=== PATIENT | male | born 1980 | race Hispanic/Latino ===

== ENCOUNTER 2017-03-21 14:15 | Emergency (ER) | payer SELFPAY ==
[2017-03-21] MEDS ORDERED: Ibuprofen 800 MG TAB ONE (14:44)
--- NOTE | 2017-03-21 15:15 | RAD ---
LEFT KNEE: Four views. HISTORY: Left knee pain. FINDINGS: Joint spaces appear normal. No fracture. Very mild degenerative change is seen with minimal spurrin g from the patella. No evidence of joint effusion. IMPRESSION: No acute abnormality identified. POS: [facility]
[2017-03-21] MEDS ORDERED: Acetaminophen/Codeine 30-300mg Tablet ONE (16:00)
== END 2017-03-21 15:33 | disposition home or self-care (01) ==
LOC: ERS 14:15
DX: M25.562 Pain in left knee (principal); E78.5 Hyperlipidemia, unspecified; I10 Essential (primary) hypertension; F17.210 Nicotine dependence, cigarettes, uncomplicated

== ENCOUNTER 2017-04-22 05:36 | Emergency (ER) | payer SELFPAY ==
[2017-04-22 06:10] LABS: #Eosinphils 0.3 thou/uL (0.0-0.7); #Lymphocytes 2.8 thou/uL (1.20-3.40); #Monocytes 1.2 thou/uL (0.11-0.59); #Neutrophils 7.2 thou/uL (1.40-6.50); %Basophils 0.2 % (0.0-1.0); %Eosinophils 2.5 % (0.0-10.0); %Lymphocytes 24.4 % (21.0-51.0); %Monocytes 10.4 % (0.0-10.0); %Neutrophils 62.6 % (42.0-75.0); Hemoglobin 15.6 g/dL (14.0-18.0); Mean Corpuscular HGB CONC 33.5 g/dL (32.0-36.0); Mean Corpuscular Hemoglobin 30.3 pg (27.0-31.0); Mean Corpuscular Volume 90.7 fl (80.0-94.0); Mean Platelet Volume 6.6 fL (7.4-10.4); Platelet Count 280 thou/uL (130-400); RBC Distribution Width 12.1 % (11.5-14.5); Red Blood Cell (RBC) Count 5.13 mill/uL (4.70-6.10); White Blood Cell (WBC) Count 11.6 thou/uL (4.8-10.8)
[2017-04-22 06:40] LABS: ALT (SGPT) 22 U/L (8-55); AST (SGOT) 17 U/L (5-34); Alkaline Phosphatase 50 U/L (40-150); Anion Gap 11 mmol/L (10-20); BUN (Urea Nitrogen) 14 mg/dL (8.9-20.6); Bilirubin, Total 0.3 mg/dL (0.2-1.2); Calc. Creatinine Clearance 0 mL/min (70-130); Calcium 9.1 mg/dL (7.8-10.44); Carbon Dioxide 29 mmol/L (22-29); Chloride 103 mmol/L (98-107); Estimated GFR-MDRD Greater than 90; Globulin 2.9 g/dL (2.4-3.5); Glucose 133 mg/dL (70-105); Lipase 65 U/L (8-78); Potassium 4.5 mmol/L (3.5-5.1); Protein, Total 6.9 g/dL (6.0-8.3); Sodium 138 mmol/L (136-145)
[2017-04-22 08:14] LABS: Bilirubin Negative (Negative); Blood, Urine Trace (Negative); Clarity CLEAR (Clear); Glucose, Urine (Dipstick) Negative (Negative); Leukocyte Negative (Negative); Nitrite Negative (Negative); Protein, Urine (Dipstick) Negative (Neg-Trace); Urobilinogen 0.2 mg/dL (0.2-1.0); pH, Urine 5.5 (5.0-9.0)
[2017-04-22 08:20] LABS: Bacteria/HPF None Seen HPF (None Seen); Hyaline Casts/LPF 0-3 HYALINE CAST LPF (0-3 Hyaline); RBC/HPF 0-3 HPF (0-3); Squamous Epithelial None Seen HPF (0-3); WBC/HPF None Seen HPF (0-3)
--- NOTE | 2017-04-22 09:32 | RAD ---
ABDOMEN 1 VIEW: Date: 04/22/17 HISTORY: Emergency exam. COMPARISON: [facility] protocol CT from 2016. FINDINGS: There is a curvilinear calcification directing over the left renal shadow. Right renal shadow is with out calcification. Between the two views, there is differential orientation of this area. There are s ome surgical clips along the left ureter. No dilated or air-filled loops of large or small bowel. IMPRESSION: 1. No dilated or air-filled loops of large of small bowel. No evidence of bowel obstruction. 2. Multiple surgical clips projecting over the left kidney and the left ureter. POS: [facility]
== END 2017-04-22 08:51 | disposition home or self-care (01) ==
LOC: ERS 05:36
DX: R10.13 Epigastric pain (principal); E78.5 Hyperlipidemia, unspecified; I10 Essential (primary) hypertension; F17.210 Nicotine dependence, cigarettes, uncomplicated
CPT/HCPCS: 36415; 74018; 80053; 81003; 81015; 83690; 85025; 93005

== ENCOUNTER 2017-06-15 09:12 | Emergency (ER) | payer SELFPAY ==
[2017-06-15 10:08] LABS: #Eosinphils 0.2 thou/uL (0.0-0.7); #Lymphocytes 1.6 thou/uL (1.20-3.40); #Monocytes 0.9 thou/uL (0.11-0.59); #Neutrophils 9.4 thou/uL (1.40-6.50); %Basophils 0.3 % (0.0-1.0); %Eosinophils 1.9 % (0.0-10.0); %Lymphocytes 13.3 % (21.0-51.0); %Monocytes 7.4 % (0.0-10.0); %Neutrophils 77.2 % (42.0-75.0); Hemoglobin 16.9 g/dL (14.0-18.0); Mean Corpuscular Hemoglobin 30.3 pg (27.0-31.0); Mean Corpuscular Volume 89.1 fl (80.0-94.0); Mean Platelet Volume 7.2 fL (7.4-10.4); Platelet Count 281 thou/uL (130-400); RBC Distribution Width 12.7 % (11.5-14.5); Red Blood Cell (RBC) Count 5.57 mill/uL (4.70-6.10); White Blood Cell (WBC) Count 12.1 thou/uL (4.8-10.8)
[2017-06-15] MEDS ORDERED: Ondansetron HCl/PF 4 MG/2 ML Vial ONE (10:28)
[2017-06-15] MEDS ORDERED: Ketorolac Tromethamine 30 MG/ML VIAL ONE (10:28)
[2017-06-15 10:35] LABS: ALT (SGPT) 36 U/L (8-55); AST (SGOT) 29 U/L (5-34); Albumin 4.5 g/dL (3.5-5.0); Alkaline Phosphatase 59 U/L (40-150); Anion Gap 12 mmol/L (10-20); BUN (Urea Nitrogen) 15 mg/dL (8.9-20.6); Bilirubin, Total 0.4 mg/dL (0.2-1.2); Calc. Creatinine Clearance 0 mL/min (70-130); Calcium 9.6 mg/dL (7.8-10.44); Carbon Dioxide 24 mmol/L (22-29); Chloride 104 mmol/L (98-107); Estimated GFR-MDRD Greater than 90; Globulin 3.3 g/dL (2.4-3.5); Glucose 144 mg/dL (70-105); Lipase 16 U/L (8-78); Potassium 3.8 mmol/L (3.5-5.1); Protein, Total 7.8 g/dL (6.0-8.3); Sodium 136 mmol/L (136-145)
[2017-06-15 10:47] LABS: Bilirubin Negative (Negative); Blood, Urine Small (Negative); Clarity CLEAR (Clear); Glucose, Urine (Dipstick) Negative (Negative); Leukocyte Negative (Negative); Nitrite Negative (Negative); Protein, Urine (Dipstick) Trace mg/dL (Neg-Trace); Specific Gravity, Urine 1.031 (1.002-1.036); Urobilinogen 0.2 mg/dL (0.2-1.0); pH, Urine 5.5 (5.0-9.0)
[2017-06-15 10:50] LABS: Bacteria/HPF None Seen HPF (None Seen); Hyaline Casts/LPF 0-3 HYALINE CAST LPF (0-3 Hyaline); RBC/HPF 0-3 HPF (0-3); Squamous Epithelial None Seen HPF (0-3); WBC/HPF 0-3 HPF (0-3)
--- NOTE | 2017-06-15 12:01 | CT ---
CT ABDOMEN AND PELVIS WITH ORAL AND IV CONTRAST: Date: 06/15/17 HISTORY: Abdominal pain, nausea and vomiting. Previous history of diverticulitis and colostomy. FINDINGS: Comparison made with exam of 11/09/15. The lung bases are clear. No free air, free fluid, or lymphadenopathy seen in the abdomen or pelvis. No calcified gallstones are seen. There is mild fatty infiltration of the liver. The small bowel loop s are not abnormally dilated. A normal appearing appendix is present. There are postop changes in the sigmoid colon. Colonic diverticulosis is seen without evidence of diverticulitis. No abnormally locu lated fluid collections are noted to suggest abscess formation. No acute osseous abnormalities are id entified. IMPRESSION: 1. Colonic diverticulosis without evidence of diverticulitis. 2. Fatty liver. POS: [facility]
[2017-06-15] MEDS ORDERED: Iopamidol 370 76% 50 ML VIAL FS ONE (15:39)
[2017-06-15] MEDS ORDERED: ISOVUE-370 76%-LOCM 1 ML ONE (15:39)
== END 2017-06-15 12:22 | disposition home or self-care (01) ==
LOC: ERS 09:12
DX: R10.12 Left upper quadrant pain (principal); R10.32 Left lower quadrant pain; E78.5 Hyperlipidemia, unspecified; I10 Essential (primary) hypertension; F17.210 Nicotine dependence, cigarettes, uncomplicated
CPT/HCPCS: 74177; 80053; 81003; 81015; 83690; 85025; 96361; 96374; 96375; J1885; J2405

== ENCOUNTER 2017-09-01 22:54 | Emergency (ER) | payer SELFPAY ==
--- NOTE | 2017-09-01 23:14 | RAD ---
TWO VIEWS OF THE CHEST: 09/01/17 COMPARISON: 06/22/15 HISTORY: Chest pressure for a few days. FINDINGS: Two views of the chest show normal sized cardiomediastinal silhouette. There is no evidence of consol idation, mass, or pleural effusion. The bones are unremarkable. IMPRESSION: No evidence of acute cardiopulmonary disease. POS: [facility]
[2017-09-01 23:37] LABS: #Eosinphils 0.2 thou/uL (0.0-0.7); #Lymphocytes 2.9 thou/uL (1.20-3.40); #Monocytes 0.5 thou/uL (0.11-0.59); #Neutrophils 2.9 thou/uL (1.40-6.50); %Basophils 0.7 % (0.0-1.0); %Eosinophils 3.1 % (0.0-10.0); %Lymphocytes 45.2 % (21.0-51.0); %Monocytes 7.2 % (0.0-10.0); %Neutrophils 43.8 % (42.0-75.0); Hemoglobin 15.6 g/dL (14.0-18.0); Mean Corpuscular HGB CONC 35.8 g/dL (32.0-36.0); Mean Corpuscular Hemoglobin 31.1 pg (27.0-31.0); Mean Platelet Volume 6.8 fL (7.4-10.4); Platelet Count 272 thou/uL (130-400); RBC Distribution Width 12.6 % (11.5-14.5); Red Blood Cell (RBC) Count 5.03 mill/uL (4.70-6.10); White Blood Cell (WBC) Count 6.5 thou/uL (4.8-10.8)
[2017-09-01 23:57] LABS: ALT (SGPT) 34 U/L (8-55); AST (SGOT) 24 U/L (5-34); Albumin 4.2 g/dL (3.5-5.0); Alkaline Phosphatase 55 U/L (40-150); Anion Gap 15 mmol/L (10-20); BUN (Urea Nitrogen) 11 mg/dL (8.9-20.6); Bilirubin, Total 0.4 mg/dL (0.2-1.2); CK (CPK) 147 U/L (30-200); Calc. Creatinine Clearance 0 mL/min (70-130); Carbon Dioxide 22 mmol/L (22-29); Chloride 105 mmol/L (98-107); Estimated GFR-MDRD Greater than 90; Globulin 3.6 g/dL (2.4-3.5); Glucose 168 mg/dL (70-105); Potassium 3.9 mmol/L (3.5-5.1); Protein, Total 7.8 g/dL (6.0-8.3); Sodium 138 mmol/L (136-145)
[2017-09-02 00:01] LABS: CKMB 0.7 ng/mL (0-6.6); Troponin I Less than 0.010 ng/mL (< 0.028)
== END 2017-09-02 02:15 | disposition home or self-care (01) ==
LOC: ERS 22:54
DX: R07.89 Other chest pain (principal); E78.5 Hyperlipidemia, unspecified; F17.210 Nicotine dependence, cigarettes, uncomplicated; I10 Essential (primary) hypertension
CPT/HCPCS: 36415; 71046; 80053; 82550; 82553; 84484; 85025; 93005

== ENCOUNTER 2019-06-04 19:21 | Emergency (ER) | payer OTHER, SELFPAY ==
[2019-06-04] MEDS ORDERED: Adacel (T-DAP) 0.5 ML SYRINGE ONE (19:42)
[2019-06-04] MEDS ORDERED: Bacitracin 1 PK ONE (19:43)
== END 2019-06-04 20:06 | disposition home or self-care (01) ==
LOC: ERS 19:21
DX: S00.31XA Abrasion of nose, initial encounter (principal); E78.5 Hyperlipidemia, unspecified; I10 Essential (primary) hypertension; F17.210 Nicotine dependence, cigarettes, uncomplicated; W20.8XXA Other cause of strike by thrown, projected or falling object, initial encounter; Z23 Encounter for immunization
CPT/HCPCS: 90471; 90715

== ENCOUNTER 2021-10-28 15:59 | Emergency (ER) | payer SELFPAY ==
[2021-10-28] MEDS ORDERED: Ketorolac Tromethamine 30 MG/ML VIAL ONE (18:10)
== END 2021-10-28 18:33 | disposition home or self-care (01) ==
LOC: ERS 15:59
DX: M25.461 Effusion, right knee (principal); E78.5 Hyperlipidemia, unspecified; I10 Essential (primary) hypertension; F17.210 Nicotine dependence, cigarettes, uncomplicated; W19.XXXA Unspecified fall, initial encounter
CPT/HCPCS: 96372; J1885

== ENCOUNTER 2022-11-13 17:07 | Inpatient (IN) | payer BC ==
[~2022-11-13 17:07] MED LIST: Iopamidol-370 76% 500 ML MDV (1 ML CHARGE) ONE
[2022-11-13 19:16] LABS: #Eosinphils 0.1 thou/uL (0.0-0.7); #Monocytes 0.7 thou/uL (0.11-0.59); #Neutrophils 3.3 thou/uL (1.40-6.50); %Basophils 0.3 % (0.0-1.0); %Eosinophils 1.4 % (0.0-10.0); %Lymphocytes 29.4 % (21.0-51.0); %Monocytes 12.1 % (0.0-10.0); %Neutrophils 56.5 % (42.0-75.0); Hematocrit 43.1 % (42.0-52.0); Hemoglobin 15.3 g/dL (14.0-18.0); Mean Corpuscular HGB CONC 35.5 g/dL (32.0-36.0); Mean Corpuscular Hemoglobin 30.6 pg (27.0-31.0); Mean Corpuscular Volume 86.2 fl (78.0-98.0); Mean Platelet Volume 9.5 fL (7.4-10.4); Platelet Count 206 10x3/uL (130-400); White Blood Cell (WBC) Count 5.8 10x3/uL (4.8-10.8)
[2022-11-13 19:50] LABS: ALT (SGPT) 52 U/L (8-55); AST (SGOT) 34 U/L (5-34); Albumin 4.4 g/dL (3.5-5.0); Alkaline Phosphatase 66 U/L (40-110); BUN (Urea Nitrogen) 10 mg/dL (8.9-20.6); Bilirubin, Total 0.5 mg/dL (0.2-1.2); Calc. Creatinine Clearance 0 mL/min (70-130); Calcium 9.4 mg/dL (7.8-10.44); Carbon Dioxide 21 mmol/L (22-29); Chloride 104 mmol/L (98-107); Estimated GFR 110; Globulin 2.8 g/dL (2.4-3.5); Glucose 212 mg/dL (70-105); Potassium 3.9 mmol/L (3.5-5.1); Protein, Total 7.2 g/dL (6.0-8.3); Sodium 135 mmol/L (136-145); Troponin I Less than 0.010 ng/mL (< 0.028)
[2022-11-13 20:06] LABS: Anion Gap 14 mmol/L (10-20)
[2022-11-13 20:43] LABS: Lipase 13 U/L (8-78); Magnesium 1.9 mg/dL (1.6-2.6)
[2022-11-13] MEDS ORDERED: Ondansetron PF 4 MG/2 ML Vial ONE (20:53)
[2022-11-13] MEDS ORDERED: Morphine 4 MG/ML VIAL ONE (20:53)
[2022-11-13] MEDS ORDERED: fentaNYL 50 mcg/mL 1 mL Vial ONE (22:50)
[2022-11-14] MEDS ORDERED: metroNIDAZOLE 500 MG/100 ML BAG ONE (01:31)
[2022-11-14] MEDS ORDERED: Ondansetron ODT 4 MG TAB PO PRN (01:40)
[2022-11-14] MEDS ORDERED: Ondansetron PF 4 MG/2 ML Vial IVP PRN (01:40)
[2022-11-14] MEDS ORDERED: Glucagon 1 MG/ML KIT IM PRN (01:47)
[2022-11-14] MEDS ORDERED: HumaLOG 300 UNITS/3 ML VIAL SC PRN (01:47)
[2022-11-14] MEDS ORDERED: Dextrose 50% Abboject 50 ML SYRINGE SLOW IVP PRN (01:47)
[2022-11-14] MEDS ORDERED: Dextrose 5% in Water 1,000 ML IV PRN (01:47)
[2022-11-14 03:25] VITALS: BMI 38.1
[2022-11-14] MEDS: Morphine 2 MG/ML VIAL SLOW IVP PRN ×3 (03:49→11:41)
[2022-11-14] MEDS: Lactated Ringer's 1,000 ML IV SCH ×3 (03:50→20:06)
[2022-11-14 06:57] LABS: #Eosinphils 0.2 thou/uL (0.0-0.7); #Monocytes 0.8 thou/uL (0.11-0.59); %Basophils 0.2 % (0.0-1.0); %Eosinophils 2.9 % (0.0-10.0); %Lymphocytes 41.1 % (21.0-51.0); %Monocytes 15.3 % (0.0-10.0); %Neutrophils 40.1 % (42.0-75.0); Hematocrit 39.3 % (42.0-52.0); Hemoglobin 13.6 g/dL (14.0-18.0); Mean Corpuscular HGB CONC 34.6 g/dL (32.0-36.0); Mean Corpuscular Volume 86.8 fl (78.0-98.0); Mean Platelet Volume 9.3 fL (7.4-10.4); Platelet Count 178 10x3/uL (130-400); RBC Distribution Width 13.1 % (11.5-14.5); Red Blood Cell (RBC) Count 4.53 mill/uL (4.70-6.10); White Blood Cell (WBC) Count 5.1 10x3/uL (4.8-10.8)
[2022-11-14 07:19] LABS: Anion Gap 11 mmol/L (10-20); BUN (Urea Nitrogen) 8 mg/dL (8.9-20.6); Calc. Creatinine Clearance 187 mL/min (70-130); Calcium 8.8 mg/dL (7.8-10.44); Carbon Dioxide 25 mmol/L (22-29); Chloride 104 mmol/L (98-107); Estimated GFR 114; Glucose 165 mg/dL (70-105); Potassium 3.8 mmol/L (3.5-5.1); Sodium 136 mmol/L (136-145)
[2022-11-14] MEDS: metroNIDAZOLE 500 MG in Premix Bag 1 BAG IVPB SCH ×2 (09:48→18:11)
[2022-11-14] MEDS: Acetaminophen 325 MG TAB PO PRN ×2 (11:41→18:11)
[2022-11-14] MEDS: Morphine 4 MG/ML VIAL SLOW IVP PRN ×2 (15:58→20:17)
[2022-11-14] MEDS: traMADol HCl 50 MG TAB PO PRN (18:10)
[2022-11-15] MEDS: Morphine 4 MG/ML VIAL SLOW IVP PRN ×3 (02:07→14:02)
[2022-11-15] MEDS: metroNIDAZOLE 500 MG in Premix Bag 1 BAG IVPB SCH ×3 (02:08→18:19)
[2022-11-15] MEDS: Lactated Ringer's 1,000 ML IV SCH ×3 (03:17→21:36)
[2022-11-15 07:49] LABS: #Eosinphils 0.2 thou/uL (0.0-0.7); #Monocytes 0.5 thou/uL (0.11-0.59); #Neutrophils 1.4 thou/uL (1.40-6.50); %Basophils 0.5 % (0.0-1.0); %Eosinophils 4.1 % (0.0-10.0); %Lymphocytes 47.7 % (21.0-51.0); %Monocytes 12.9 % (0.0-10.0); %Neutrophils 34.3 % (42.0-75.0); Hematocrit 38.8 % (42.0-52.0); Hemoglobin 13.4 g/dL (14.0-18.0); Mean Corpuscular HGB CONC 34.5 g/dL (32.0-36.0); Mean Corpuscular Hemoglobin 30.2 pg (27.0-31.0); Mean Corpuscular Volume 87.4 fl (78.0-98.0); Mean Platelet Volume 9.4 fL (7.4-10.4); Platelet Count 185 10x3/uL (130-400); Red Blood Cell (RBC) Count 4.44 mill/uL (4.70-6.10); White Blood Cell (WBC) Count 4.1 10x3/uL (4.8-10.8)
[2022-11-15 08:08] LABS: Anion Gap 10 mmol/L (10-20); BUN (Urea Nitrogen) 6 mg/dL (8.9-20.6); Calc. Creatinine Clearance 197 mL/min (70-130); Calcium 8.5 mg/dL (7.8-10.44); Carbon Dioxide 27 mmol/L (22-29); Chloride 100 mmol/L (98-107); Estimated GFR 116; Glucose 153 mg/dL (70-105); Potassium 3.8 mmol/L (3.5-5.1); Sodium 133 mmol/L (136-145)
[2022-11-15] MEDS: Acetaminophen 325 MG TAB PO PRN ×2 (08:09→17:16)
[2022-11-15] MEDS: traMADol HCl 50 MG TAB PO PRN ×2 (08:09→17:16)
[2022-11-15] MEDS: Polyethylene Glycol 3350 17 GM Packet PO SCH (08:10)
[2022-11-15] MEDS: metFORMIN 500 MG TAB PO SCH (08:10)
[2022-11-16] MEDS: Lactated Ringer's 1,000 ML IV SCH ×2 (02:33→14:53)
[2022-11-16] MEDS: metroNIDAZOLE 500 MG in Premix Bag 1 BAG IVPB SCH ×3 (02:34→17:30)
[2022-11-16 06:31] LABS: #Eosinphils 0.2 thou/uL (0.0-0.7); #Monocytes 0.6 thou/uL (0.11-0.59); #Neutrophils 1.9 thou/uL (1.40-6.50); %Basophils 0.4 % (0.0-1.0); %Eosinophils 3.1 % (0.0-10.0); %Lymphocytes 45.5 % (21.0-51.0); %Monocytes 11.3 % (0.0-10.0); %Neutrophils 39.1 % (42.0-75.0); Hematocrit 38.5 % (42.0-52.0); Hemoglobin 13.7 g/dL (14.0-18.0); Mean Corpuscular HGB CONC 35.6 g/dL (32.0-36.0); Mean Corpuscular Hemoglobin 30.4 pg (27.0-31.0); Mean Corpuscular Volume 85.4 fl (78.0-98.0); Mean Platelet Volume 9.1 fL (7.4-10.4); Platelet Count 186 10x3/uL (130-400); RBC Distribution Width 12.9 % (11.5-14.5); Red Blood Cell (RBC) Count 4.51 mill/uL (4.70-6.10); White Blood Cell (WBC) Count 4.9 10x3/uL (4.8-10.8)
[2022-11-16 07:19] LABS: ALT (SGPT) 87 U/L (8-55); AST (SGOT) 68 U/L (5-34); Albumin 3.5 g/dL (3.5-5.0); Alkaline Phosphatase 47 U/L (40-110); Anion Gap 10 mmol/L (10-20); BUN (Urea Nitrogen) 6 mg/dL (8.9-20.6); Bilirubin, Total 0.4 mg/dL (0.2-1.2); Calc. Creatinine Clearance 182 mL/min (70-130); Calcium 8.9 mg/dL (7.8-10.44); Carbon Dioxide 26 mmol/L (22-29); Chloride 103 mmol/L (98-107); Estimated GFR 113; Globulin 2.6 g/dL (2.4-3.5); Glucose 151 mg/dL (70-105); Magnesium 1.7 mg/dL (1.6-2.6); Potassium 3.7 mmol/L (3.5-5.1); Protein, Total 6.1 g/dL (6.0-8.3); Sodium 135 mmol/L (136-145)
[2022-11-16] MEDS: Polyethylene Glycol 3350 17 GM Packet PO SCH (09:18)
[2022-11-16] MEDS: metFORMIN 500 MG TAB PO SCH (09:19)
[2022-11-16] MEDS: Morphine 4 MG/ML VIAL SLOW IVP PRN ×2 (14:54→21:34)
[2022-11-16] MEDS: traMADol HCl 50 MG TAB PO PRN (17:12)
[2022-11-16] MEDS: Acetaminophen 325 MG TAB PO PRN (17:13)
[2022-11-16] MEDS: Docusate 100 MG CAP PO SCH (21:02)
[2022-11-17] MEDS: Lactated Ringer's 1,000 ML IV SCH ×4 (00:22→15:06)
[2022-11-17] MEDS: metroNIDAZOLE 500 MG in Premix Bag 1 BAG IVPB SCH ×3 (01:44→17:34)
[2022-11-17] MEDS: traMADol HCl 50 MG TAB PO PRN (02:36)
[2022-11-17 05:23] LABS: #Eosinphils 0.1 thou/uL (0.0-0.7); #Monocytes 0.6 thou/uL (0.11-0.59); #Neutrophils 1.7 thou/uL (1.40-6.50); %Basophils 0.4 % (0.0-1.0); %Eosinophils 2.7 % (0.0-10.0); %Lymphocytes 52.1 % (21.0-51.0); %Monocytes 11.7 % (0.0-10.0); %Neutrophils 32.5 % (42.0-75.0); Hematocrit 39.1 % (42.0-52.0); Hemoglobin 13.5 g/dL (14.0-18.0); Mean Corpuscular HGB CONC 34.5 g/dL (32.0-36.0); Mean Corpuscular Hemoglobin 29.9 pg (27.0-31.0); Mean Corpuscular Volume 86.5 fl (78.0-98.0); Mean Platelet Volume 9.4 fL (7.4-10.4); Platelet Count 209 10x3/uL (130-400); RBC Distribution Width 13.1 % (11.5-14.5); Red Blood Cell (RBC) Count 4.52 mill/uL (4.70-6.10); White Blood Cell (WBC) Count 5.1 10x3/uL (4.8-10.8)
[2022-11-17] MEDS: HumaLOG 300 UNITS/3 ML VIAL SC PRN (05:37)
[2022-11-17] MEDS: metFORMIN 500 MG TAB PO SCH (08:02)
[2022-11-17] MEDS: Docusate 100 MG CAP PO SCH ×2 (08:02→20:11)
[2022-11-17] MEDS: Polyethylene Glycol 3350 17 GM Packet PO SCH (08:03)
[2022-11-17] MEDS ORDERED: Polyethylene Glycol 3350 17 GM Packet PO PRN (12:57)
[2022-11-17] MEDS ORDERED: Polyethylene Glycol 3350 17 GM Packet PO SCH (13:00)
[2022-11-17] MEDS ORDERED: Electrolyte Replacement Protocol 1 EACH FS SCH (14:00)
[2022-11-17] MEDS ORDERED: Electrolyte Replacement Protocol FS PRN (14:15)
[2022-11-17] MEDS ORDERED: Senokot S 8.6-50 MG TAB PO SCH (21:00)
[2022-11-17] MEDS ORDERED: Docusate 100 MG CAP PO SCH (21:00)
[2022-11-17] MEDS: Senokot S 8.6-50 MG TAB PO SCH (21:37)
[2022-11-18] MEDS: metroNIDAZOLE 500 MG in Premix Bag 1 BAG IVPB SCH ×2 (01:00→09:53)
[2022-11-18] MEDS: Lactated Ringer's 1,000 ML IV SCH (04:00)
[2022-11-18] MEDS: HumaLOG 300 UNITS/3 ML VIAL SC PRN (06:18)
[2022-11-18 08:20] VITALS: BP 139/93; TEMP 98.1
[2022-11-18] MEDS: Senokot S 8.6-50 MG TAB PO SCH (08:29)
[2022-11-18] MEDS: metFORMIN 500 MG TAB PO SCH (08:29)
[2022-11-18] MEDS: Polyethylene Glycol 3350 17 GM Packet PO SCH (08:30)
[2022-11-18] MEDS ORDERED: Methylcellulose 500 MG TAB PO SCH (09:00)
== END 2022-11-18 13:01 | disposition home or self-care (01) | DRG 392 ==
LOC: ERS 17:07 → T4-B 11-14 01:31 → OBSVTOIN 11-14 13:28
PROVIDERS: ADMIT Student in an Organized Health Care Education/Training Program; ATTEND Internal Medicine
DX: K57.32 Diverticulitis of large intestine without perforation or abscess without bleeding (principal); E87.1 Hypo-osmolality and hyponatremia; E11.9 Type 2 diabetes mellitus without complications; K57.90 Diverticulosis of intestine, part unspecified, without perforation or abscess without bleeding; E78.5 Hyperlipidemia, unspecified; I10 Essential (primary) hypertension; E66.9 Obesity, unspecified; Z68.38 Body mass index [BMI] 38.0-38.9, adult; D63.8 Anemia in other chronic diseases classified elsewhere; K59.00 Constipation, unspecified; E83.42 Hypomagnesemia; R19.7 Diarrhea, unspecified; K76.0 Fatty (change of) liver, not elsewhere classified; Z98.890 Other specified postprocedural states
CPT/HCPCS: 36415; 36416; 71045; 74018; 74177; 80048; 80053; 83690; 83735; 84484; 85025; 93005; 96361; 96365; 96367; 96375; 96376; G0378; J0744; J1815; J2270; J2272; J2405; J3010; J7120; Q0162; Q9967

== ENCOUNTER 2023-10-01 12:27 | Outpatient (CLI) | payer OTHER | END 2023-10-01 12:28 | disposition home or self-care (01) | LOC: BICMRI 12:27 | PROVIDERS: ATTEND Orthopaedic Surgery | DX: S89.91XA Unspecified injury of right lower leg, initial encounter (principal); Z98.890 Other specified postprocedural states ==